=== PATIENT | male | born 1955 | race Caucasian/White ===

== ENCOUNTER 2018-01-29 15:45 | Emergency (ER) | payer BC, OTHER ==
[2018-01-29] MEDS ORDERED: Sodium Chloride 0.9% 10 ML Syringe FLUSH PRN (16:11)
[2018-01-29] MEDS ORDERED: Sodium Chloride 0.9% 500 ML IV ONE (16:11)
--- NOTE | 2018-01-29 17:01 | EDM.PDOC ---
ED HPI GENERAL MEDICAL PROBLEM - General Chief Complaint: Syncope Stated Complaint: SYNCOPE Time Seen by Provider: 01/29/18 16:03 Source of Information: Reports: Patient, RN Notes Reviewed - History of Present Illness INITIAL COMMENTS - FREE TEXT/NARRATIVE: 62-year-old male comes in with nonspecific dizziness and lightheadedness. States he fell about 5 days ago, tripped over an object and face planted suffering some abrasion and contusion injuries to his face. No major headache or facial discomfort from that fall. He seemed fine until last evening when he did have some nonspecific lightheadedness. Then when up to the bathroom during the night he felt extremely unsteady on his feet, like he was going to fall to the right. Did feel lightheaded and dizzy at that time. He continued to feel lightheaded dizzy this morning. This afternoon he is better but still feels "unsteady on his feet". So does continue to have the sensation of nonspecific lightheadedness and dizziness. Slight frontal headache only. There's been no recent nausea or vomiting. He has been eating and drinking okay. He is diabetic but states his blood sugars been running okay. No chest pain or difficulty breathing - Related Data Allergies Allergy/AdvReac Type Severity Reaction Status Date / Time No Known Allergies Allergy Verified 01/29/18 16:00 Home Meds: Home Meds Insulin Aspart [Novolog Flexpen] 11 unit SQ TID 01/29/18 [History] Insulin Aspart [Novolog] 22 unit SQ BEDTIME 01/29/18 [History] Insulin Glarg,Human.Rec.Analog [Lantus Solostar] 52 unit SUBCUT BEDTIME [History] Levothyroxine 150 mcg PO ACBREAKFAST 01/29/18 [History] Simvastatin [Zocor] 40 mg PO BEDTIME 01/29/18 [History] amLODIPine Besylate [Amlodipine Besylate] 5 mg PO DAILY 01/29/18 [History] metFORMIN HCl [Metformin HCl] 1,000 mg PO BID 01/29/18 [History] Past Medical History Cardiovascular History: Reports: High Cholesterol, Hypertension Endocrine/Metabolic History: Reports: Diabetes, Type II, Hyperthyroidism - Past Surgical History Musculoskeletal Surgical History: Reports: Knee Replacement, Shoulder Surgery Social & Family History - Tobacco Use Smoking Status *Q: Never Smoker - Caffeine Use Caffeine Use: Reports: None - Recreational Drug Use Recreational Drug Use: No ED ROS GENERAL - Review of Systems Review Of Systems: See Below Constitutional: Denies: Fever, Chills HEENT: Denies: Sinus Problem, Throat Pain, Vision Change Respiratory: Denies: Shortness of Breath, Pleuritic Chest Pain Cardiovascular: Denies: Chest Pain GI/Abdominal: Reports: Nausea (Mild nausea earlier today, now better). Denies: Abdominal Pain, Diarrhea, Vomiting Musculoskeletal: Denies: Neck Pain, Shoulder Pain, Back Pain, Leg Pain Skin: Reports: Other (He does have a few superficial abrasions of his face and forehead secondary to his fall about 5 days ago) Neurological: Reports: Dizziness, Headache, Gait Disturbance (Patient is felt off balance at times when walking since last evening). Denies: Numbness (Mild, gone), Tingling, Trouble Speaking, Weakness, Change in Speech - Physical Exam Exam: See Below General Appearance: Alert, No Apparent Distress Eye Exam: Bilateral Eye: PERRL Throat/Mouth: Normal Inspection Head Exam: Other (He has some superficial abrasions, no swelling, visible bruising or bony tenderness) Neck: Supple, Non-Tender, Full Range of Motion Respiratory/Chest: No Respiratory Distress, Lungs Clear, Normal Breath Sounds Cardiovascular: Regular Rate, Rhythm GI/Abdominal: Soft, Non-Tender Neuro Exam (Abbreviated): Alert, Oriented, No Motor/Sensory Deficits, Other ( Finger to nose testing normal, Romberg negative) Back Exam: Normal Inspection Extremities: Normal Inspection, Normal Range of Motion. No: Leg Pain Skin Exam: Warm, Dry, Normal Color EKG INTERPRETATION EKG Date: 01/29/18 Rhythm: NSR Viola: Normal P-Wave: Present QRS: Normal ST-T: Normal Course - Vital Signs Last Recorded V/S: Last Vital Signs Temp 97.3 F 01/29/18 15:51 Pulse 75 01/29/18 15:51 Resp 14 01/29/18 15:51 BP 146/82 H 01/29/18 15:51 Pulse Ox 98 01/29/18 15:51 Orthostatic Blood Pressure [ 145/80 Standing] Orthostatic Blood Pressure [ 142/76 Sitting] Orthostatic Blood Pressure [ 133/77 Supine] - Orders/Labs/Meds Orders: Active Orders 24 hr Category Date Time Status EKG 12 Lead [EKG Documentation Completion] [RC] STAT Care 01/29/18 16:10 Active Peripheral IV Care [RC] . DIRECTED Care 01/29/18 16:11 Active Sodium Chloride 0.9% [Saline Flush] Med 01/29/18 16:11 Active 10 ml FLUSH ASDIRECTED PRN Peripheral IV Insertion Adult [OM.PC] Stat Oth 01/29/18 16:11 Ordered Medication Orders Sodium Chloride (Saline Flush) 10 ml FLUSH ASDIRECTED PRN PRN Reason: Keep Vein Open Last Admin: 01/29/18 16:54 Dose: 10 ml Labs: Laboratory Tests 01/29/18 01/29/18 Range/Units 17:03 17:03 WBC 10.01 H (4.23-9.07) K/mm3 RBC 5.42 (4.63-6.08) M/mm3 Hgb 17.0 (13.7-17.5) gm/L Hct 47.4 (40.1-51.0) % MCV 87.5 (79.0-92.2) fl MCH 31.4 (25.7-32.2) pg MCHC 35.9 H (32.2-35.5) g/dl RDW Std Deviation 42.5 (35.1-43.9) fL Plt Count 195 (163-337) K/mm3 MPV 10.1 (9.4-12.3) fl Neut % (Auto) 61.3 (34.0-67.9) % Lymph % (Auto) 19.2 L (21.8-53.1) % Monroe % (Auto) 9.3 (5.3-12.2) % Eos % (Auto) 8.7 H (0.8-7.0) Baso % (Auto) 0.7 (0.1-1.2) % Neut # (Auto) 6.14 H (1.78-5.38) K/mm3 Lymph # (Auto) 1.92 (1.32-3.57) K/mm3 Monroe # (Auto) 0.93 H (0.30-0.82) K/mm3 Eos # (Auto) 0.87 H (0.04-0.54) K/mm3 Baso # (Auto) 0.07 (0.01-0.08) K/mm3 Sodium 140 (136-145) mEq/L Potassium 4.0 (3.5-5.1) mEq/L Chloride 102 (98-107) mEq/L Carbon Dioxide 27 (21-32) mEq/L Anion Gap 15.0 (5-15) BUN 18 (7-18) mg/dL Creatinine 1.1 (0.7-1.3) mg/dL Est Cr Clr Drug Dosing 67.84 mL/min Estimated GFR (MDRD) > 60 (>60) mL/min BUN/Creatinine Ratio 16.4 (14-18) Glucose 156 H (80-115) mg/dL Calcium 9.5 (8.5-10.1) mg/dL Total Bilirubin 0.9 (0.2-1.0) mg/dL AST 34 (15-37) U/L ALT 60 (16-63) U/L Alkaline Phosphatase 112 (46-116) U/L Total Protein 7.1 (6.4-8.2) g/dl Albumin 4.0 (3.4-5.0) g/dl Globulin 3.1 gm/dL Albumin/Globulin Ratio 1.3 (1-2) Meds: Medications Generic Name Dose Route Start Last Admin Trade Name Freq PRN Reason Stop Dose Admin Sodium Chloride 10 ml 01/29/18 16:11 01/29/18 16:54 Saline Flush FLUSH 10 ml ASDIRECTED PRN Administration Keep Vein Open Discontinued Medications Generic Name Dose Route Start Last Admin Trade Name Freq PRN Reason Stop Dose Admin Sodium Chloride 500 mls @ 999 mls/hr 01/29/18 16:11 01/29/18 17:20 Normal Saline IV 01/29/18 16:41 999 mls/hr .BOLUS ONE Administration - Re-Assessments/Exams Free Text/Narrative Re-Assessment/Exam: 01/29/18 18:49 EKG was normal, on the monitor he is been in sinus rhythm rate primarily in the 70s, no ectopy. Labs have all come back relatively normal. Head CT does not show any acute findings, see radiology report for details. Blood pressure has been stable while here in the ED, not too high or not too low. I did have him stand for me and he did fine with that. He was able to ambulate without difficulty at time of discharge. I did discuss option of 48 hour Holter monitor , event recorder if he does continue to have further symptoms. Discharge instructions as documented. Departure - Departure Time of Disposition: 18:30 Disposition: Home, Self-Care 01 Condition: Fair Clinical Impression: Dizziness, nonspecific Fall Qualifiers: Encounter type: initial encounter Qualified Code(s): W19.XXXA - Unspecified fall, initial encounter - Discharge Information Instructions: Dizziness, [id number] Referrals: Shereen Smith MD [Primary Care Provider] - Forms: ED Department Discharge Additional Instructions: Drink plenty of water frequently throughout the day and evening to maintain hydration, If you do get dizzy and lightheaded again get your head down as discussed either sitting with your head down or better yet to lie down until symptoms of dizziness and lightheadedness resolve. See Dr. Smith next week for recheck, call tomorrow morning for appointment, return to ED as needed if symptoms worsening in any way. - My Orders Last 24 Hours: My Active Orders 01/29/18 16:10 EKG 12 Lead [EKG Documentation Completion] [RC] STAT 01/29/18 16:11 Peripheral IV Care [RC] . DIRECTED Sodium Chloride 0.9% [Saline Flush] 10 ml FLUSH ASDIRECTED PRN Peripheral IV Insertion Adult [OM.PC] Stat - Assessment/Plan Last 24 Hours: My Active Orders 01/29/18 16:10 EKG 12 Lead [EKG Documentation Completion] [RC] STAT 01/29/18 16:11 Peripheral IV Care [RC] . DIRECTED Sodium Chloride 0.9% [Saline Flush] 10 ml FLUSH ASDIRECTED PRN Peripheral IV Insertion Adult [OM.PC] Stat
--- NOTE | 2018-01-29 17:03 | CT ---
Head CT Technique: Multiple axial sections through the brain were obtained. Intravenous contrast was not utilized. Comparison: No prior intracranial imaging is available. Findings: Ventricles along with basal cisterns and sulci over the convexities are mildly prominent. Very minimal diminished density is noted within the periventricular and subcortical white matter compatible with minimal small vessel ischemic demyelination change. No other abnormal parenchymal densities are seen. No evidence of intracranial hemorrhage. No midline shift or mass effect is seen. Mild mucosal thickening is seen within the ethmoid and frontal sinuses. No acute calvarial abnormality is appreciated. Impression: 1. Mild senescent change. Nothing acute is seen on noncontrast head CT study. Diagnostic code #2
== END 2018-01-29 18:40 | disposition home or self-care (01) ==
LOC: JD.ED 15:45
DX: S00.81XA Abrasion of other part of head, initial encounter (principal); R42 Dizziness and giddiness; E78.00 Pure hypercholesterolemia, unspecified; I10 Essential (primary) hypertension; E11.9 Type 2 diabetes mellitus without complications; E05.90 Thyrotoxicosis, unspecified without thyrotoxic crisis or storm; Z79.4 Long term (current) use of insulin; Z79.84 Long term (current) use of oral hypoglycemic drugs; W01.0XXA Fall on same level from slipping, tripping and stumbling without subsequent striking against object, initial encounter
CPT/HCPCS: 36415; 70450; 80053; 85025; 93005; 96360; 99284; J7040; J7050

== ENCOUNTER 2021-10-24 09:36 | Day surgery (SDC) | payer MEDICARE, BC ==
[2021-10-24] MEDS: Polymyxin B/Trimethoprim 10 ML Bottle EYELF SCH ×4 (09:19→10:55)
[2021-10-24] MEDS: Brimonidine 0.2% Ophth Soln 5 ML Bottle EYELF SCH ×4 (09:29→10:55)
[2021-10-24] MEDS: Phenylephrine 2.5% Ophth Soln 2 ML Bot EYELF SCH ×6 (09:35→10:42)
[2021-10-24] MEDS: Tropicamide 1% Ophth Soln 15 ML Bottle EYELF SCH ×4 (09:39→10:20)
[2021-10-24] MEDS: Tetracaine HCl/PF 0.5% 4 ML Bottle EYEBOTH SCH ×3 (10:30→10:43)
[2021-10-24] MEDS: Lidocaine 1% PF 2 ML SDV INJECT SCH ×2 (10:42→10:44)
[2021-10-24] MEDS: Cefuroxime 10 MG/ML SYRINGE EYELF SCH ×2 (10:43→10:54)
[2021-10-24] MEDS: Pilocarpine 4% Ophth Soln 15 ML Bot EYELF SCH ×2 (10:44→10:55)
== END 2021-10-24 11:09 | disposition home or self-care (01) ==
LOC: JD.SDS 09:36
PROVIDERS: ATTEND Ophthalmology
DX: E10.36 Type 1 diabetes mellitus with diabetic cataract (principal); E10.3293 Type 1 diabetes mellitus with mild nonproliferative diabetic retinopathy without macular edema, bilateral; H25.813 Combined forms of age-related cataract, bilateral; I10 Essential (primary) hypertension; E78.00 Pure hypercholesterolemia, unspecified; Z88.8 Allergy status to other drugs, medicaments and biological substances
CPT/HCPCS: 66984; 82947; J0697; C1780

== ENCOUNTER 2021-10-26 22:15 | Emergency (ER) | payer OTHER, MEDICARE, BC ==
[2021-10-26] MEDS ORDERED: Proparacaine 0.5% Ophth Soln 15 ML Bottle EYERT ONE (22:45)
[2021-10-26] MEDS ORDERED: Fluorescein 1 MG Ophth Strip EYERT ONE (22:46)
[2021-10-26] MEDS ORDERED: Ciprofloxacin 0.3% Ophth Soln 5 ML Bottle EYERT SCH (23:30)
[2021-10-26] MEDS ORDERED: Ciprofloxacin 0.3% Ophth Soln 5 ML Bottle EYERT ONE (23:30)
== END 2021-10-27 00:31 | disposition home or self-care (01) ==
LOC: JD.ED 22:15
DX: S05.01XA Injury of conjunctiva and corneal abrasion without foreign body, right eye, initial encounter (principal); S60.512A Abrasion of left hand, initial encounter; E78.00 Pure hypercholesterolemia, unspecified; I10 Essential (primary) hypertension; E11.9 Type 2 diabetes mellitus without complications; E05.90 Thyrotoxicosis, unspecified without thyrotoxic crisis or storm; Z88.8 Allergy status to other drugs, medicaments and biological substances; Z79.4 Long term (current) use of insulin; Z79.899 Other long term (current) drug therapy; V50.9XXA Unspecified occupant of pick-up truck or van injured in collision with pedestrian or animal in traffic accident, initial encounter; Y92.410 Unspecified street and highway as the place of occurrence of the external cause
CPT/HCPCS: 99283; A9270